=== PATIENT | female | born 1975 | race Caucasian/White ===

== ENCOUNTER 2020-04-11 18:43 | Emergency (ER) | payer OTHER ==
[~2020-04-11] VITALS: Ht 165.1 cm; Wt 78.2 kg
[2020-04-11] MEDS ORDERED: CEFTRIAXONE 250 MG ONE (19:20)
--- NOTE | 2020-04-11 19:20 | NUR ---
pharmacy on telephone, discussed pt's allergies with erp and order received to continue with abx as ordered
[2020-04-11 19:30] LABS: BASOPHILS # (AUTO) 0.02 x10^3/uL (0-0.1); BASOPHILS % (AUTO) 0 % (0-1); EOSINOPHILS # (AUTO) 0.16 x10^3/uL (0-0.4); EOSINOPHILS % (AUTO) 2 % (1-7); LYMPHOCYTES # (AUTO) 3.99 x10^3/uL (1-3.4); LYMPHOCYTES % (AUTO) 40 % (22-44); MD NO; MEAN CORPUSCULAR HEMOGLOBIN 30.5 pg (27.0-34.8); MEAN CORPUSCULAR HGB CONC 33.9 g/dL (32.4-35.8); MEAN CORPUSCULAR VOLUME 90.2 fL (80-100); MEAN PLATELET VOLUME 7.4 fL (7.4-10.4); MONOCYTES # (AUTO) 0.73 x10^3/uL (0.2-0.8); MONOCYTES % (AUTO) 7 % (2-9); NEUTROPHILS # (AUTO) 4.97 x10^3/uL (1.8-6.8); NEUTROPHILS % (AUTO) 50 % (42-75); PLATELET COUNT 373 x10^3/uL (130-400); RED BLOOD COUNT 4.87 x10^6/uL (3.82-5.3); RED CELL DISTRIBUTION WIDTH 12.9 % (9.6-15.2)
[2020-04-11] MEDS ORDERED: SODIUM CHLORIDE FLUSH 10ML SYR IVF ONE (19:30)
[2020-04-11] MEDS ORDERED: CEFTRIAXONE 250 MG IM ONE (19:30)
[2020-04-11 19:40] LABS: ANION GAP 7 mmol/L (5-15); CALCIUM 9.1 mg/dL (8.5-10.1); CHLORIDE 105 mmol/L (98-107); CREATININE 0.91 mg/dL (0.55-1.02)
[2020-04-11] MEDS ORDERED: LEVOFLOXACIN/PMX 750MG/150ML 150 ML ONE (19:45)
[2020-04-11] MEDS ORDERED: LEVOFLOXACIN/PMX 750MG/150ML 150 ML IV ONE (20:00)
--- NOTE | 2020-04-11 20:00 | NUR ---
PT MEDICATED PER MAR
[2020-04-11 20:13] LABS: MICROSCOPIC NOT IND
[2020-04-11] MEDS ORDERED: ONDANSETRON 2MG/ML, 2ML ONE (20:15)
[2020-04-11] MEDS ORDERED: ONDANSETRON 2MG/ML, 2ML IVPush ONE (20:30)
--- NOTE | 2020-04-11 20:38 | NUR ---
PT UP TO RR WITH STEADY GAIT
[2020-04-11] MEDS ORDERED: HYDROmorphone 1 MG/ML, 1ML INJ ONE (20:43)
[2020-04-11] MEDS ORDERED: HYDROmorphone 1 MG/ML, 1ML INJ IVPush PRN (21:00)
[2020-04-11] MEDS ORDERED: KETOROLAC 30 MG/1 ML ONE (21:41)
--- NOTE | 2020-04-11 21:46 | NUR ---
pt medicated per mar
[2020-04-11 21:47] VITALS: BP 142/75
[2020-04-11] MEDS ORDERED: KETOROLAC 30 MG/1 ML IVPush ONE (22:00)
== END 2020-04-11 22:32 | disposition home or self-care (01) ==
LOC: ED 22:10
DX: R10.9 Unspecified abdominal pain (principal); R16.0 Hepatomegaly, not elsewhere classified; Z90.49 Acquired absence of other specified parts of digestive tract
CPT/HCPCS: 36415; 74176; 80048; 81003; 82040; 83605; 85025; 87040; 96365; 96375; 99284; J1170; J1885; J1956; J2405

== ENCOUNTER → 2020-04-11 | Outpatient (CLI) | payer OTHER | END | disposition home or self-care (01) | LOC: CFH 16:12 | PROVIDERS: ATTEND Nurse Practitioner Family | DX: N20.0 Calculus of kidney (principal); N13.30 Unspecified hydronephrosis; R30.0 Dysuria | CPT/HCPCS: 76770 ==